=== PATIENT | male | born 1950 | race Caucasian/White ===

== ENCOUNTER → 2018-07-27 | Outpatient (CLI) | payer MEDICARE, OTHER ==
[~2018-07-27] MED LIST: AMLO5TAB7 PO; ATOR20TA66 PO; CRAN200C PO; HYDR-3923 PO; IBUP-2055 PO; IBUP-30 PO; LISI40TA PO; METF750T2 PO; METO-333 PO; SIMV10TA3 PO
== END ==
PROVIDERS: ATTEND Internal Medicine
DX: R50.9 Fever, unspecified (principal); R09.89 Other specified symptoms and signs involving the circulatory and respiratory systems
CPT/HCPCS: 87804

== ENCOUNTER → 2018-09-06 | Emergency (ER) | payer MEDICARE, OTHER ==
[~2018-09-06] VITALS: Ht 185.4 cm; Wt 74.8 kg
--- OUTSIDE RECORDS SUMMARY | 2018-09-06 17:16 | XMS REPORT | Continuity of Care Document ---
Author Author [facility] Organization [facility] Address Unknown Phone Unavailable Allergies Active Description Code Type Severity Reaction Onset Reported/Identified Relationship to Patient Clinical Status Yes NO KNOWN DRUG ALLERGIES UNKNOWN NO KNOWN DRUG ALLERG Yes No Known Drug Allergies [id number] Drug Allergy Unknown N/A 10/06/2015 Medications Medication Packaging Start Date Stop Date Route Dosage Sig NORMAL SALINE 500CC IV BAG INJ 0.9 % (NS 500CC IV BAG) ml 05/22/2018 06/06/2018 CONTINUOUSEVERY 0 Hour D5 09/10 NS 1000CC IV BAG INJ ml 05/30/2018 CONTINUOUSEVERY 0 Hour METOPROLOL TAB 25 MG (LOPRESSOR) MG 05/23/2018 06/21/2018 BID&0800,2000 AMLODIPINE TAB 5 MG (NORVASC) MG 06/21/2018 Daily&0900 AMLODIPINE TAB 10 MG (NORVASC) MG 05/23/2018 05/29/2018 Daily&0900 ASPIRIN ENTERIC COATED TAB 81 MG (BABY ASPIRIN EC) MG 05/23/2018 05/29/2018 Daily&0900 INSULIN ASPART PEN INJ 100 UNITS/CC (NOVOLOG FLEXPEN) 05/23/2018 05/23/2018 ONCE&1257 INSULIN ASPART PEN INJ 100 UNITS/CC (NOVOLOG FLEXPEN) 05/23/2018 06/22/2018 ACHS&0630,1130,1630,2100 FAMOTIDINE TAB 20 MG (PEPCID) MG 05/30/2018 BID&0800,2000 AMLODIPINE TAB 10 MG (NORVASC) MG 05/24/2018 05/30/2018 Daily&0900 ENOXAPARIN SYRINGE INJ 40 MG (LOVENOX SYRINGE) MG 05/24/2018 06/02/2018 Daily&0900 FLUOXETINE CAP 20 MG (PROZAC) MG 05/30/2018 Daily&0900 SITAGLIPTIN TAB 100 MG (JANUVIA) MG 05/24/2018 05/30/2018 Daily&0900 TAMSULOSIN CAP 0.4 MG (FLOMAX) MG 05/25/2018 05/31/2018 QPM&1800 DONEPEZIL TAB 5 MG (ARICEPT) MG 06/01/2018 Daily&0900 D5 1/2 NS 1000CC IV BAG INJ ml 06/25/2018 CONTINUOUSEVERY 0 Hour CEFTRIAXONE PREMIX IV BAG IV 1 GM/50CC (ROCEPHIN PREMIX IV BAG) GM 05/27/2018 06/02/2018 Daily&0900 MILK OF HEIDI LIQ ml 05/28/2018 06/26/2018 PRN Daily Problems Date Dx Coded Attending Type Code Diagnosis Diagnosed By 10/06/2015 VASHTI ROBINS DO, Ot I10 ESSENTIAL (PRIMARY) HYPERTENSION 10/06/2015 VASHTI ROBINS DO Ot I67.9 CEREBROVASCULAR DISEASE, UNSPECIFIED 10/06/2015 VASHTI ROBINS DO Ot N28.9 DISORDER OF KIDNEY AND URETER, UNSPECIFI 10/06/2015 VASHTI ROBINS DO Ot R55 SYNCOPE AND COLLAPSE 10/06/2015 VASHTI ROBINS DO, Ot R73.9 HYPERGLYCEMIA, UNSPECIFIED 10/06/2015 VASHTI ROBINS DO Ot Z53.29 PROC/TRTMT NOT CRD OUT BEC PT DECISION F 02/11/2016 ENRIQUE APPLE DO Ot E11.9 TYPE 2 DIABETES MELLITUS WITHOUT COMPLIC 02/11/2016 ENRIQUE APPLE DO Ot E78.5 HYPERLIPIDEMIA, UNSPECIFIED 02/11/2016 ENRIQUE APPLE DO Ot G93.41 METABOLIC ENCEPHALOPATHY 02/11/2016 ENRIQUE APPLE DO Ot I12.9 HYPERTENSIVE CHRONIC KIDNEY DISEASE W ST 02/11/2016 ENRIQUE APPLE DO Ot I61.4 NONTRAUMATIC INTRACEREBRAL HEMORRHAGE IN 02/11/2016 ENRIQUE APPLE DO Ot I67.4 HYPERTENSIVE ENCEPHALOPATHY 02/11/2016 ENRIQUE APPLE DO Ot N17.9 ACUTE KIDNEY FAILURE, UNSPECIFIED 02/11/2016 ENRIQUE APPLE DO Ot N18.9 CHRONIC KIDNEY DISEASE, UNSPECIFIED 04/27/2016 DAT MARQUEZ, ALISHA Patel Ot E78.2 MIXED HYPERLIPIDEMIA 04/27/2016 ALISHA DAUGHERTY MD Ot I10 ESSENTIAL (PRIMARY) HYPERTENSION 04/27/2016 ALISHA DAUGHERTY MD Ot I63.9 CEREBRAL INFARCTION, UNSPECIFIED 04/27/2016 DAT MARQUEZ, ALISHA Patel Ot R94.4 ABNORMAL RESULTS OF KIDNEY FUNCTION STUD 04/27/2016 ALISHA DAUGHERTY MD Ot E78.2 MIXED HYPERLIPIDEMIA 04/27/2016 ALISHA DAUGHERTY MD Ot I10 ESSENTIAL (PRIMARY) HYPERTENSION 04/27/2016 ALISHA DAUGHERTY MD Ot I63.9 CEREBRAL INFARCTION, UNSPECIFIED 04/27/2016 ALISHA DAUGHERTY MD Ot R94.4 ABNORMAL RESULTS OF KIDNEY FUNCTION STUD 05/18/2016 ALISHA DAUGHERTY MD Ot E78.2 MIXED HYPERLIPIDEMIA 05/18/2016 ALISHA DAUGHERTY MD Ot I10 ESSENTIAL (PRIMARY) HYPERTENSION 05/18/2016 ALISHA DAUGHERTY MD Ot I63.9 CEREBRAL INFARCTION, UNSPECIFIED 05/18/2016 ALISHA DAUGHERTY MD Ot R94.4 ABNORMAL RESULTS OF KIDNEY FUNCTION STUD 08/23/2017 Brokob, Sugey W 250.00 DIABETES MELLITUS WITHOUT MENTION OF COMPLICATION, TYPE II OR UNSPECIFIED TYPE, NOT STATED UNCONTROLLED 08/23/2017 Brokob, Sugey W 401.9 UNSPECIFIED ESSENTIAL HYPERTENSION 08/23/2017 Brokob, Sugey W 585.9 CHRONIC KIDNEY DISEASE, UNSPECIFIED 08/23/2017 Brokob, Sugey W E11.9 TYPE 2 DIABETES MELLITUS WITHOUT COMPLICATIONS 08/23/2017 Brokob, Sugey W I10 ESSENTIAL (PRIMARY) HYPERTENSION 08/23/2017 Brokob, Sugey W N18.9 CHRONIC KIDNEY DISEASE, UNSPECIFIED 08/23/2017 Brokob, Sugey W 250.00 DIABETES MELLITUS WITHOUT MENTION OF COMPLICATION, TYPE II OR UNSPECIFIED TYPE, NOT STATED UNCONTROLLED 08/23/2017 Brokob, Sugey W 401.9 UNSPECIFIED ESSENTIAL HYPERTENSION 08/23/2017 Brokob, Sugey W 585.9 CHRONIC KIDNEY DISEASE, UNSPECIFIED 08/23/2017 Brokob, Sugey W E11.9 TYPE 2 DIABETES MELLITUS WITHOUT COMPLICATIONS 08/23/2017 Brokob, Sugey W I10 ESSENTIAL (PRIMARY) HYPERTENSION 08/23/2017 Brokob, Sugey W N18.9 CHRONIC KIDNEY DISEASE, UNSPECIFIED 11/01/2017 Jennifer Sullivan W 250.00 DIABETES MELLITUS WITHOUT MENTION OF COMPLICATION, TYPE II OR UNSPECIFIED TYPE, NOT STATED UNCONTROLLED 11/01/2017 Laurie, Jennifer W 401.0 MALIGNANT ESSENTIAL HYPERTENSION 11/01/2017 Laurie, Jennifer W 401.9 11/01/2017 Laurie, Jennifer W 585.3 CHRONIC KIDNEY DISEASE, STAGE III (MODERATE) 11/01/2017 Laurei, Jennifer W 782.3 EDEMA 11/01/2017 Laurie, Jennifer W E11.9 TYPE 2 DIABETES MELLITUS WITHOUT COMPLICATIONS 11/01/2017 Laurie, Jennifer W I10 ESSENTIAL (PRIMARY) HYPERTENSION 11/01/2017 Laurie, Jennifer W N18.3 CHRONIC KIDNEY DISEASE, STAGE 3 (MODERATE) 11/01/2017 Laurie, Jennifer W R60.0 LOCALIZED EDEMA 11/01/2017 Laurie, Jennifer W 250.00 DIABETES MELLITUS WITHOUT MENTION OF COMPLICATION, TYPE II OR UNSPECIFIED TYPE, NOT STATED UNCONTROLLED 11/01/2017 Laurie, Jennifer W 401.0 MALIGNANT ESSENTIAL HYPERTENSION 11/01/2017 Laurie, Jennifer W 401.9 11/01/2017 Laurie, Jennifer W 585.3 CHRONIC KIDNEY DISEASE, STAGE III (MODERATE) 11/01/2017 Laurie, Jennifer W 585.9 11/01/2017 Laurie, Jennifer W 782.3 11/01/2017 Laurie, Jennifer W E11.9 TYPE 2 DIABETES MELLITUS WITHOUT COMPLICATIONS 11/01/2017 Laurie, Jennifer W I10 ESSENTIAL (PRIMARY) HYPERTENSION 11/01/2017 Laurie, Jennifer W N18.3 CHRONIC KIDNEY DISEASE, STAGE 3 (MODERATE) 11/01/2017 Laurie, Jennifer W N18.9 CHRONIC KIDNEY DISEASE, UNSPECIFIED 11/01/2017 Laurie, Jennifer W R60.0 LOCALIZED EDEMA 11/01/2017 Laurie, Jennifer W 250.00 DIABETES MELLITUS WITHOUT MENTION OF COMPLICATION, TYPE II OR UNSPECIFIED TYPE, NOT STATED UNCONTROLLED 11/01/2017 Laurie, Jennifer W 401.0 MALIGNANT ESSENTIAL HYPERTENSION 11/01/2017 Laurie, Jennifer W 401.9 11/01/2017 Laurie, Jennifer W 585.3 CHRONIC KIDNEY DISEASE, STAGE III (MODERATE) 11/01/2017 Alurie, Jennifer W 585.9 11/01/2017 Laurie, Jennifer W 782.3 11/01/2017 Laurie, Jennifer W E11.9 TYPE 2 DIABETES MELLITUS WITHOUT COMPLICATIONS 11/01/2017 Laurie, Jennifer W I10 ESSENTIAL (PRIMARY) HYPERTENSION 11/01/2017 Laurie, Jennifer W N18.3 CHRONIC KIDNEY DISEASE, STAGE 3 (MODERATE) 11/01/2017 Laurie, Jennifer W N18.9 CHRONIC KIDNEY DISEASE, UNSPECIFIED 11/01/2017 Laurie, Jennifer W R60.0 LOCALIZED EDEMA 11/04/2017 Laurie, Jennifer W 585.9 CHRONIC KIDNEY DISEASE, UNSPECIFIED 11/04/2017 Laurie, Jennifer W N18.9 CHRONIC KIDNEY DISEASE, UNSPECIFIED 11/04/2017 Laurie, Jennifer W 585.9 CHRONIC KIDNEY DISEASE, UNSPECIFIED 11/04/2017 Laurie, Jennifer W N18.9 CHRONIC KIDNEY DISEASE, UNSPECIFIED 04/18/2018 Laurie, Jennifer W 272.4 OTHER AND UNSPECIFIED HYPERLIPIDEMIA 04/18/2018 Laurie, Jennifer W 285.9 ANEMIA, UNSPECIFIED 04/18/2018 Laurie, Jennifer W 585.9 CHRONIC KIDNEY DISEASE, UNSPECIFIED 04/18/2018 Laurie, Jennifer W 782.3 EDEMA 04/18/2018 Laurie, Jennifer W D64.9 ANEMIA, UNSPECIFIED 04/18/2018 Laurie, Jennifer W E78.5 HYPERLIPIDEMIA, UNSPECIFIED 04/18/2018 Laurie, Jennifer W N18.9 CHRONIC KIDNEY DISEASE, UNSPECIFIED 04/18/2018 Laurie, Jennifer W R60.0 LOCALIZED EDEMA 04/18/2018 Laurie, Jennifer W 272.4 OTHER AND UNSPECIFIED HYPERLIPIDEMIA 04/18/2018 Laurie, Jennifer W 285.9 ANEMIA, UNSPECIFIED 04/18/2018 Laurie, Jennifer W 585.9 CHRONIC KIDNEY DISEASE, UNSPECIFIED 04/18/2018 Laurie, Jennifer W 782.3 EDEMA 04/18/2018 Laurie, Jennifer W D64.9 ANEMIA, UNSPECIFIED 04/18/2018 Laurie, Jennifer W E78.5 HYPERLIPIDEMIA, UNSPECIFIED 04/18/2018 Laurie, Jennifer W N18.9 CHRONIC KIDNEY DISEASE, UNSPECIFIED 04/18/2018 Laurie, Jennifer W R60.0 LOCALIZED EDEMA 04/18/2018 Laurie, Jennifer W 250.00 DIABETES MELLITUS WITHOUT MENTION OF COMPLICATION, TYPE II OR UNSPECIFIED TYPE, NOT STATED UNCONTROLLED 04/18/2018 Laurie, Jennifer W 272.4 OTHER AND UNSPECIFIED HYPERLIPIDEMIA 04/18/2018 Laurie, Jennifer W 285.9 ANEMIA, UNSPECIFIED 04/18/2018 Laurie, Jennifer W 401.0 04/18/2018 Laurie, Jennifer W 401.9 04/18/2018 Laurie, Jennifer W 403.00 04/18/2018 Laurie, Jennifer W 585.3 04/18/2018 Laurie, Jennifer W 585.9 CHRONIC KIDNEY DISEASE, UNSPECIFIED 04/18/2018 Laurie, Jennifer W 782.3 EDEMA 04/18/2018 Laurie, Jennifer W D64.9 ANEMIA, UNSPECIFIED 04/18/2018 Laurie, Jennifer W E11.9 TYPE 2 DIABETES MELLITUS WITHOUT COMPLICATIONS 04/18/2018 Laurie, Jennifer W E78.5 HYPERLIPIDEMIA, UNSPECIFIED 04/18/2018 Laurie, Jennifer W I10 ESSENTIAL (PRIMARY) HYPERTENSION 04/18/2018 Laurie, Jennifer W I12.9 HYPERTENSIVE CHRONIC KIDNEY DISEASE WITH STAGE 1 THROUGH STAGE 4 CHRONIC KIDNEY DISEASE, OR UNSPECIFIED CHRONIC KIDNEY DISEASE 04/18/2018 Laurie, Jennifer W N18.3 CHRONIC KIDNEY DISEASE, STAGE 3 (MODERATE) 04/18/2018 Laurie, Jennifer W N18.9 CHRONIC KIDNEY DISEASE, UNSPECIFIED 04/18/2018 Laurie, Jennifer W R60.0 LOCALIZED EDEMA 04/18/2018 Laurie, Jennifer W R60.9 EDEMA, UNSPECIFIED 04/18/2018 Laurie, Jennifer W 250.00 04/18/2018 Laurie, Jennifer W 272.4 04/18/2018 Laurie, Jennifer W 285.9 04/18/2018 Laurie, Jennifer W 401.0 04/18/2018 Laurie, Jennifer W 401.9 04/18/2018 Laurie, Jennifer W 403.00 04/18/2018 Laurie, Jennifer W 585.3 04/18/2018 Laurie, Jennifer W 585.9 04/18/2018 Laurie, Jennifer W 709.9 04/18/2018 Laurie, Jennifer W 782.3 04/18/2018 Laurie, Jennifer W D64.9 ANEMIA, UNSPECIFIED 04/18/2018 Laurie, Jennifer W E11.9 TYPE 2 DIABETES MELLITUS WITHOUT COMPLICATIONS 04/18/2018 Laurie, Jennifer W E78.5 HYPERLIPIDEMIA, UNSPECIFIED 04/18/2018 Laurie, Jennifer W I10 ESSENTIAL (PRIMARY) HYPERTENSION 04/18/2018 Laurie, Jennifer W I12.9 HYPERTENSIVE CHRONIC KIDNEY DISEASE WITH STAGE 1 THROUGH STAGE 4 CHRONIC KIDNEY DISEASE, OR UNSPECIFIED CHRONIC KIDNEY DISEASE 04/18/2018 Laurie, Jennifer W L98.9 04/18/2018 Laurie, Jennifer W N18.3 CHRONIC KIDNEY DISEASE, STAGE 3 (MODERATE) 04/18/2018 Laurie, Jennifer W N18.9 CHRONIC KIDNEY DISEASE, UNSPECIFIED 04/18/2018 Laurie, Jennifer W R60.0 LOCALIZED EDEMA 04/18/2018 Laurie, Jennifer W R60.9 EDEMA, UNSPECIFIED 04/18/2018 Laurie, Jennifer W Z86.73 04/18/2018 Laurie, Jennifer W Z91.81 05/22/2018 Salinas, Cinthya-Micaela W 780.79 OTHER MALAISE AND FATIGUE 05/22/2018 [place], Cinthya-Micaela W R53.1 WEAKNESS 05/22/2018 [place], Cinthya-Micaela W 250.90 DIABETES MELLITUS WITH UNSPECIFIED COMPLICATION, TYPE II OR UNSPECIFIED TYPE, NOT STATED UNCONTROLLED 05/22/2018 [place], Cinthya-Micaela W 401.9 UNSPECIFIED ESSENTIAL HYPERTENSION 05/22/2018 [place], Cinthya-Micaela W 780.79 OTHER MALAISE AND FATIGUE 05/22/2018 [place], Cinthya-Micaela W E11.8 TYPE 2 DIABETES MELLITUS WITH UNSPECIFIED COMPLICATIONS 05/22/2018 [place], Cinthya-Micaela W I10 ESSENTIAL (PRIMARY) HYPERTENSION 05/22/2018 [place], Cinthya-Micaela W R53.1 WEAKNESS 05/23/2018 [place], Cinthya-Micaela W 250.90 DIABETES MELLITUS WITH UNSPECIFIED COMPLICATION, TYPE II OR UNSPECIFIED TYPE, NOT STATED UNCONTROLLED 05/23/2018 [place], Cinthya-Micaela W 401.9 UNSPECIFIED ESSENTIAL HYPERTENSION 05/23/2018 [place], Cinthya-Micaela W 584.9 ACUTE KIDNEY FAILURE, UNSPECIFIED 05/23/2018 [place], Cinthya-Micaela W 780.79 OTHER MALAISE AND FATIGUE 05/23/2018 [place], Cinthya-Micaela W E11.8 TYPE 2 DIABETES MELLITUS WITH UNSPECIFIED COMPLICATIONS 05/23/2018 [place], Cinthya-Micaela W I10 ESSENTIAL (PRIMARY) HYPERTENSION 05/23/2018 [place], Cinthya-Micaela W N17.9 ACUTE KIDNEY FAILURE, UNSPECIFIED 05/23/2018 [place], Cinthya-Micaela W R53.1 WEAKNESS 05/23/2018 [place], Cinthya-Micaela W 250.90 DIABETES MELLITUS WITH UNSPECIFIED COMPLICATION, TYPE II OR UNSPECIFIED TYPE, NOT STATED UNCONTROLLED 05/23/2018 [place], Cinthya-Micaela W 401.9 UNSPECIFIED ESSENTIAL HYPERTENSION 05/23/2018 [place], Cinthya-Micaela W 584.9 ACUTE KIDNEY FAILURE, UNSPECIFIED 05/23/2018 [place], Cinthya-Micaela W 780.79 OTHER MALAISE AND FATIGUE 05/23/2018 [place], Cinthya-Micaela W E11.8 TYPE 2 DIABETES MELLITUS WITH UNSPECIFIED COMPLICATIONS 05/23/2018 [place], Cinthya-Micaela W I10 ESSENTIAL (PRIMARY) HYPERTENSION 05/23/2018 [place], Cinthya-Micaela W N17.9 ACUTE KIDNEY FAILURE, UNSPECIFIED 05/23/2018 [place], Cinthya-Micaela W R53.1 WEAKNESS 05/23/2018 [place], Cinthya-Micaela W 250.90 DIABETES MELLITUS WITH UNSPECIFIED COMPLICATION, TYPE II OR UNSPECIFIED TYPE, NOT STATED UNCONTROLLED 05/23/2018 [place], Cinthya-Micaela W 401.9 UNSPECIFIED ESSENTIAL HYPERTENSION 05/23/2018 [place], Cinthya-Micaela W 584.9 ACUTE KIDNEY FAILURE, UNSPECIFIED 05/23/2018 [place], Cinthya-Micaela W 585.3 CHRONIC KIDNEY DISEASE, STAGE III (MODERATE) 05/23/2018 [place], Cinthya-Micaela W 780.79 OTHER MALAISE AND FATIGUE 05/23/2018 [place], Cinthya-Micaela W E11.8 TYPE 2 DIABETES MELLITUS WITH UNSPECIFIED COMPLICATIONS 05/23/2018 [place], Cinthya-Micaela W I10 ESSENTIAL (PRIMARY) HYPERTENSION 05/23/2018 [place], Cinthya-Micaela W N17.9 ACUTE KIDNEY FAILURE, UNSPECIFIED 05/23/2018 [place], Cinthya-Micaela W N18.3 CHRONIC KIDNEY DISEASE, STAGE 3 (MODERATE) 05/23/2018 [place], Cinthya-Micaela W R53.1 WEAKNESS 05/24/2018 [place], Cinthya-Micaela W 250.90 DIABETES MELLITUS WITH UNSPECIFIED COMPLICATION, TYPE II OR UNSPECIFIED TYPE, NOT STATED UNCONTROLLED 05/24/2018 [place], Cinthya-Micaela W 401.9 UNSPECIFIED ESSENTIAL HYPERTENSION 05/24/2018 [place], Cinthya-Micaela W 584.9 ACUTE KIDNEY FAILURE, UNSPECIFIED 05/24/2018 [place], Cinthya-Micaela W 585.3 05/24/2018 [place], Cinthya-Micaela W 728.87 05/24/2018 [place], Cinthya-Micaela W 780.79 OTHER MALAISE AND FATIGUE 05/24/2018 [place], Cinthya-Micaela W E11.8 TYPE 2 DIABETES MELLITUS WITH UNSPECIFIED COMPLICATIONS 05/24/2018 [place], Cinthya-Micaela W I10 ESSENTIAL (PRIMARY) HYPERTENSION 05/24/2018 [place], Cinthya-Micaela W M62.81 MUSCLE WEAKNESS (GENERALIZED) 05/24/2018 Salnias, Cinthya-Micaela W N17.9 ACUTE KIDNEY FAILURE, UNSPECIFIED 05/24/2018 Salinas, Cinthya-Micaela W N18.3 CHRONIC KIDNEY DISEASE, STAGE 3 (MODERATE) 05/24/2018 [place], Cinthya-Micaela W R53.1 WEAKNESS 05/24/2018 [place], Cinthya-Micaela W 250.90 DIABETES MELLITUS WITH UNSPECIFIED COMPLICATION, TYPE II OR UNSPECIFIED TYPE, NOT STATED UNCONTROLLED 05/24/2018 [place], Cinthya-Micaela W 401.9 UNSPECIFIED ESSENTIAL HYPERTENSION 05/24/2018 [place], Cinthya-Micaela W 584.9 ACUTE KIDNEY FAILURE, UNSPECIFIED 05/24/2018 [place], Cinthya-Micaela W 585.3 05/24/2018 [place], Cinthya-Micaela W 728.87 05/24/2018 [place], Cinthya-Micaela W 780.79 OTHER MALAISE AND FATIGUE 05/24/2018 [place], Cinthya-Micaela W E11.8 TYPE 2 DIABETES MELLITUS WITH UNSPECIFIED COMPLICATIONS 05/24/2018 [place], Cinthya-Micaela W I10 ESSENTIAL (PRIMARY) HYPERTENSION 05/24/2018 [place], Cinthya-Micaela W M62.81 MUSCLE WEAKNESS (GENERALIZED) 05/24/2018 [place], Cinthya-Micaela W N17.9 ACUTE KIDNEY FAILURE, UNSPECIFIED 05/24/2018 [place], Cinthya-Micaela W N18.3 CHRONIC KIDNEY DISEASE, STAGE 3 (MODERATE) 05/24/2018 [place], Cinthya-Micaela W R53.1 WEAKNESS 05/24/2018 [place], Cinthya-Micaela W 250.90 DIABETES MELLITUS WITH UNSPECIFIED COMPLICATION, TYPE II OR UNSPECIFIED TYPE, NOT STATED UNCONTROLLED 05/24/2018 [place], Cinthya-Micaela W 401.9 UNSPECIFIED ESSENTIAL HYPERTENSION 05/24/2018 [place], Cinthya-Micaela W 584.9 05/24/2018 [place], Cinthya-Micaela W 585.3 05/24/2018 [place], Cinthya-Micaela W 728.87 05/24/2018 [place], Cinthya-Micaela W 780.79 OTHER MALAISE AND FATIGUE 05/24/2018 [place], Cinthya-Micaela W E11.8 TYPE 2 DIABETES MELLITUS WITH UNSPECIFIED COMPLICATIONS 05/24/2018 [place], Cinthya-Micaela W I10 ESSENTIAL (PRIMARY) HYPERTENSION 05/24/2018 [place], Cinthya-Micaela W M62.81 MUSCLE WEAKNESS (GENERALIZED) 05/24/2018 [place], Cinthya-Micaela W N17.9 ACUTE KIDNEY FAILURE, UNSPECIFIED 05/24/2018 [place], Cinthya-Micaela W N18.3 CHRONIC KIDNEY DISEASE, STAGE 3 (MODERATE) 05/24/2018 [place], Cinthya-Micaela W R53.1 WEAKNESS 05/24/2018 [place], Cinthya-Micaela W V60.4 05/24/2018 [place], Cinthya-Micaela W Z74.2 NEED FOR ASSISTANCE AT HOME AND NO OTHER HOUSEHOLD MEMBER ABLE TO RENDER CARE 05/24/2018 [place], Cinthya-Micaela W 250.90 DIABETES MELLITUS WITH UNSPECIFIED COMPLICATION, TYPE II OR UNSPECIFIED TYPE, NOT STATED UNCONTROLLED 05/24/2018 [place], Cinthya-Micaela W 300.4 05/24/2018 [place], Cinthya-Micaela W 401.9 05/24/2018 [place], Cinthya-Micaela W 584.9 05/24/2018 [place], Cinthya-Micaela W 585.3 05/24/2018 [place], Cinthya-Micaela W 728.87 05/24/2018 [place], Cinthya-Micaela W 780.79 OTHER MALAISE AND FATIGUE 05/24/2018 [place], Cinthya-Micaela W E11.8 TYPE 2 DIABETES MELLITUS WITH UNSPECIFIED COMPLICATIONS 05/24/2018 [place], Cinthya-Micaela W F34.1 DYSTHYMIC DISORDER 05/24/2018 [place], Cinthya-Micaela W I10 ESSENTIAL (PRIMARY) HYPERTENSION 05/24/2018 [place], Cinthya-Micaela W M62.81 MUSCLE WEAKNESS (GENERALIZED) 05/24/2018 [place], Cinthya-Micaela W N17.9 ACUTE KIDNEY FAILURE, UNSPECIFIED 05/24/2018 [place], Cinthya-Micaela W N18.3 CHRONIC KIDNEY DISEASE, STAGE 3 (MODERATE) 05/24/2018 [place], Cinthya-Micaela W R53.1 WEAKNESS 05/24/2018 [place], Cinthya-Micaela W V60.4 05/24/2018 [place], Cinthya-Micaela W Z74.2 NEED FOR ASSISTANCE AT HOME AND NO OTHER HOUSEHOLD MEMBER ABLE TO RENDER CARE 05/24/2018 [place], Cinthya-Micaela W 250.90 05/24/2018 [place], Cinthya-Micaela W 300.4 05/24/2018 [place], Cinthya-Micaela W 368.9 05/24/2018 [place], Cinthya-Micaela W 401.9 05/24/2018 [place], Cinthya-Micaela W 584.9 05/24/2018 [place], Cinthya-Micaela W 585.3 05/24/2018 [place], Cinthya-Micaela W 728.87 05/24/2018 [place], Cinthya-Micaela W 780.79 OTHER MALAISE AND FATIGUE 05/24/2018 [place], Cinthya-Micaela W E11.8 TYPE 2 DIABETES MELLITUS WITH UNSPECIFIED COMPLICATIONS 05/24/2018 [place], Cinthya-Micaela W F34.1 DYSTHYMIC DISORDER 05/24/2018 [place], Cinthya-Micaela W H53.9 UNSPECIFIED VISUAL DISTURBANCE 05/24/2018 [place], Cinthya-Micaela W I10 ESSENTIAL (PRIMARY) HYPERTENSION 05/24/2018 [place], Cinthya-Micaela W M62.81 MUSCLE WEAKNESS (GENERALIZED) 05/24/2018 [place], Cinthya-Micaela W N17.9 ACUTE KIDNEY FAILURE, UNSPECIFIED 05/24/2018 [place], Cinthya-Micaela W N18.3 CHRONIC KIDNEY DISEASE, STAGE 3 (MODERATE) 05/24/2018 [place], Cinthya-Micaela W R53.1 WEAKNESS 05/24/2018 [place], Cinthya-Micaela W V60.4 05/24/2018 [place], Cinthya-Micaela W Z74.2 NEED FOR ASSISTANCE AT HOME AND NO OTHER HOUSEHOLD MEMBER ABLE TO RENDER CARE 05/24/2018 [place], Cinthya-Micaela W 250.90 05/24/2018 [place], Cinthya-Micaela W 300.4 05/24/2018 [place], Cinthya-Micaela W 368.9 05/24/2018 [place], Cinthya-Micaela W 401.9 05/24/2018 [place], Cintyha-Micaela W 434.91 05/24/2018 [place], Cinthya-Micaela W 584.9 05/24/2018 [place], Cinthya-Micaela W 585.3 05/24/2018 [place], Cinthya-Micaela W 728.87 05/24/2018 [place], Cinthya-Micaela W 780.79 05/24/2018 [place], Cinthya-Micaela W E11.8 TYPE 2 DIABETES MELLITUS WITH UNSPECIFIED COMPLICATIONS 05/24/2018 [place], Cinthya-Micaela W F34.1 DYSTHYMIC DISORDER 05/24/2018 [place], Cinthya-Micaela W H53.9 UNSPECIFIED VISUAL DISTURBANCE 05/24/2018 [place], Cinthya-Micaela W I10 ESSENTIAL (PRIMARY) HYPERTENSION 05/24/2018 [place], Cinthya-Micaela W I63.9 CEREBRAL INFARCTION, UNSPECIFIED 05/24/2018 [place], Cinthya-Micaela W M62.81 MUSCLE WEAKNESS (GENERALIZED) 05/24/2018 [place], Cinthya-Micaela W N17.9 ACUTE KIDNEY FAILURE, UNSPECIFIED 05/24/2018 [place], Cinthya-Micaela W N18.3 CHRONIC KIDNEY DISEASE, STAGE 3 (MODERATE) 05/24/2018 [place], Cinthya-Micaela W R53.1 WEAKNESS 05/24/2018 [place], Cinthya-Micaela W V60.4 05/24/2018 [place], Cinthya-Micaela W Z74.2 NEED FOR ASSISTANCE AT HOME AND NO OTHER HOUSEHOLD MEMBER ABLE TO RENDER CARE 05/25/2018 [place], Cinthya-Micaela W 250.90 05/25/2018 [place], Cinthya-Micaela W 300.4 05/25/2018 [place], Cinthya-Micaela W 368.9 05/25/2018 [place], Cinthya-Micaela W 401.9 05/25/2018 [place], Cinthya-Micaela W 434.91 05/25/2018 [place], Cinthya-Micaela W 584.9 05/25/2018 [place], Cinthya-Micaela W 585.3 05/25/2018 [place], Cinthya-Micaela W 728.87 05/25/2018 [place], Cinthya-Micaela W 780.79 05/25/2018 [place], Cinthya-Micaela W E11.8 TYPE 2 DIABETES MELLITUS WITH UNSPECIFIED COMPLICATIONS 05/25/2018 Salinas, Cinthya-Micaela W F34.1 DYSTHYMIC DISORDER 05/25/2018 Salinas, Cinthya-Micaela W H53.9 UNSPECIFIED VISUAL DISTURBANCE 05/25/2018 Salinas, Cinthya-Micaela W I10 ESSENTIAL (PRIMARY) HYPERTENSION 05/25/2018 Salinas, Cinthya-Micaela W I63.9 CEREBRAL INFARCTION, UNSPECIFIED 05/25/2018 Salinas, Cinthya-Micaela W M62.81 MUSCLE WEAKNESS (GENERALIZED) 05/25/2018 Salinas, Cinthya-Micaela W N17.9 ACUTE KIDNEY FAILURE, UNSPECIFIED 05/25/2018 Salinas, Cinthya-Micaela W N18.3 CHRONIC KIDNEY DISEASE, STAGE 3 (MODERATE) 05/25/2018 Salinas, Cinthya-Micaela W R53.1 WEAKNESS 05/25/2018 Salinas, Cinthya-Micaela W V60.4 05/25/2018 Salinas, Cinthya-Micaela W Z74.2 NEED FOR ASSISTANCE AT HOME AND NO OTHER HOUSEHOLD MEMBER ABLE TO RENDER CARE 05/26/2018 Salinas, Cinthya-Micaela W 250.90 05/26/2018 Salinas, Cinthya-Micaela W 300.4 05/26/2018 Salinas, Cinthya-Micaela W 368.9 05/26/2018 Sal[place], Cinthya-Micaela W 401.9 05/26/2018 Salinas, Cinthya-Micaela W 434.91 05/26/2018 Salinas, Cinthya-Micaela W 584.9 05/26/2018 Sal[place], Cinthya-Micaela W 585.3 05/26/2018 Sal[place], Cinthya-Micaela W 728.87 05/26/2018 Sal[place], Cinthya-Micaela W 780.79 05/26/2018 Sal[place], Cinthya-Micaela W E11.8 TYPE 2 DIABETES MELLITUS WITH UNSPECIFIED COMPLICATIONS 05/26/2018 Salinas, Cinthya-Micaela W F34.1 DYSTHYMIC DISORDER 05/26/2018 Sal[place], Cinthya-Micaela W H53.9 UNSPECIFIED VISUAL DISTURBANCE 05/26/2018 Sal[place], Cinthya-Micaela W I10 ESSENTIAL (PRIMARY) HYPERTENSION 05/26/2018 [place], Cinthya-Micaela W I63.9 CEREBRAL INFARCTION, UNSPECIFIED 05/26/2018 Sal[place], Cinthya-Micaela W M62.81 MUSCLE WEAKNESS (GENERALIZED) 05/26/2018 Sal[place], Cinthya-Micaela W N17.9 ACUTE KIDNEY FAILURE, UNSPECIFIED 05/26/2018 Sal[place], Cinthya-Micaela W N18.3 CHRONIC KIDNEY DISEASE, STAGE 3 (MODERATE) 05/26/2018 Sal[place], Cinthya-Micaela W R53.1 WEAKNESS 05/26/2018 Sal[place], Cinthya-Micaela W V60.4 05/26/2018 Sal[place], Cinthya-Micaela W Z74.2 NEED FOR ASSISTANCE AT HOME AND NO OTHER HOUSEHOLD MEMBER ABLE TO RENDER CARE 05/26/2018 Salinas, Cinthya-Micaela W 250.90 05/26/2018 Sal[place], Cinthya-Micaela W 300.4 05/26/2018 Sal[place], Cinthya-Micaela W 368.9 05/26/2018 Sal[place], Cinthya-Micaela W 401.9 05/26/2018 Sal[place], Cinthya-Micaela W 434.91 05/26/2018 Sal[place], Cinthya-Micaela W 584.9 05/26/2018 Sal[place], Cinthya-Micaela W 585.3 05/26/2018 Sal[place], Cinthya-Micaela W 585.4 05/26/2018 Sal[place], Cinthya-Micaela W 728.87 05/26/2018 Sal[place], Cinthya-Micaela W 780.79 05/26/2018 Sal[place], Cinthya-Micaela W E11.8 TYPE 2 DIABETES MELLITUS WITH UNSPECIFIED COMPLICATIONS 05/26/2018 Sal[place], Cinthya-Micaela W F34.1 DYSTHYMIC DISORDER 05/26/2018 Sal[place], Cinthya-Micaela W H53.9 UNSPECIFIED VISUAL DISTURBANCE 05/26/2018 Sal[place], Cinthya-Micaela W I10 ESSENTIAL (PRIMARY) HYPERTENSION 05/26/2018 Sal[place], Cinthya-Micaela W I63.9 CEREBRAL INFARCTION, UNSPECIFIED 05/26/2018 Sal[place], Cinthya-Micaela W M62.81 MUSCLE WEAKNESS (GENERALIZED) 05/26/2018 Sal[place], Cinthya-Micaela W N17.9 ACUTE KIDNEY FAILURE, UNSPECIFIED 05/26/2018 Salinas, Cinthya-Micaela W N18.3 CHRONIC KIDNEY DISEASE, STAGE 3 (MODERATE) 05/26/2018 Salinas, Cinthya-Micaela W N18.4 05/26/2018 Sal[place], Cinthya-Micaela W R53.1 WEAKNESS 05/26/2018 Salinas, Cinthya-Micaela W V60.4 05/26/2018 Sal[place], Cinthya-Micaela W Z74.2 NEED FOR ASSISTANCE AT HOME AND NO OTHER HOUSEHOLD MEMBER ABLE TO RENDER CARE 05/26/2018 Sal[place], Cinthya-Micaela W 250.90 05/26/2018 Salinas, Cinthya-Micaela W 300.4 05/26/2018 Sal[place], Cinthya-Micaela W 368.9 05/26/2018 Sal[place], Cinthya-Micaela W 401.9 05/26/2018 Sal[place], Cinthya-Micaela W 434.91 05/26/2018 Sal[place], Cinthya-Micaela W 584.9 05/26/2018 Salinas, Cinthya-Micaela W 585.3 05/26/2018 Salinas, Cinthya-Micaela W 585.4 05/26/2018 Salinas, Cinthya-Micaela W 728.87 05/26/2018 Salinas, Cinthya-Micaela W 780.79 05/26/2018 Salinas, Cinthya-Micaela W E11.8 TYPE 2 DIABETES MELLITUS WITH UNSPECIFIED COMPLICATIONS 05/26/2018 Salinas, Cinthya-Micaela W F34.1 DYSTHYMIC DISORDER 05/26/2018 Salinas, Cinthya-Micaela W H53.9 UNSPECIFIED VISUAL DISTURBANCE 05/26/2018 Salinas, Cinthya-Micaela W I10 ESSENTIAL (PRIMARY) HYPERTENSION 05/26/2018 Salinas, Cinthya-Micaela W I63.9 CEREBRAL INFARCTION, UNSPECIFIED 05/26/2018 Salinas, Cinthya-Micalea W M62.81 MUSCLE WEAKNESS (GENERALIZED) 05/26/2018 Salinas, Cinthya-Micaela W N17.9 ACUTE KIDNEY FAILURE, UNSPECIFIED 05/26/2018 Salinas, Cinthya-Micaela W N18.3 CHRONIC KIDNEY DISEASE, STAGE 3 (MODERATE) 05/26/2018 Salinas, Cinthya-Micaela W N18.4 05/26/2018 Salinas, Cinthya-Micaela W R53.1 WEAKNESS 05/26/2018 Salinas, Cinthya-Micaela W V60.4 05/26/2018 Salinas, Cinthya-Micaela W Z74.2 NEED FOR ASSISTANCE AT HOME AND NO OTHER HOUSEHOLD MEMBER ABLE TO RENDER CARE 05/28/2018 Salinas, Cinthya-Micaela W 250.90 05/28/2018 Salinas, Cinthya-Micaela W 294.20 05/28/2018 Salinas, Cinthya-Micaela W 300.4 05/28/2018 Salinas, Cinthya-Micaela W 368.9 05/28/2018 Salinas, Cinthya-Micaela W 401.9 05/28/2018 Salinas, Cinthya-Micaela W 434.91 05/28/2018 Salinas, Cinthya-Micaela W 584.9 05/28/2018 Salinas, Cinthya-Micaela W 585.3 05/28/2018 Salinas, Cinthya-Micaela W 585.4 05/28/2018 Salinas, Cinthya-Micaela W 728.87 05/28/2018 Salinas, Cinthya-Micaela W 780.79 05/28/2018 Salinas, Cinthya-Micaela W E11.8 TYPE 2 DIABETES MELLITUS WITH UNSPECIFIED COMPLICATIONS 05/28/2018 Salinas, Cinthya-Micaela W F03.90 05/28/2018 Salinas, Cinthya-Micaela W F34.1 DYSTHYMIC DISORDER 05/28/2018 Slainas, Cinthya-Micaela W H53.9 UNSPECIFIED VISUAL DISTURBANCE 05/28/2018 Salinas, Cinthya-Micaela W I10 ESSENTIAL (PRIMARY) HYPERTENSION 05/28/2018 Salinas, Cinthya-Micaela W I63.9 CEREBRAL INFARCTION, UNSPECIFIED 05/28/2018 Salinas, Cinthya-Micaela W M62.81 MUSCLE WEAKNESS (GENERALIZED) 05/28/2018 Salinas, Cinthya-Micaela W N17.9 ACUTE KIDNEY FAILURE, UNSPECIFIED 05/28/2018 Salinas, Cinthya-Micaela W N18.3 CHRONIC KIDNEY DISEASE, STAGE 3 (MODERATE) 05/28/2018 Salinas, Cinthya-Micaela W N18.4 05/28/2018 Salinas, Cinthya-Micaela W R53.1 WEAKNESS 05/28/2018 Salinas, Cinthya-Micaela W V60.4 05/28/2018 Salinas, Cinthya-Micaela W Z74.2 NEED FOR ASSISTANCE AT HOME AND NO OTHER HOUSEHOLD MEMBER ABLE TO RENDER CARE 05/28/2018 Salinas, Cinthya-Micaela W 250.90 05/28/2018 Salinas, Cinthya-Micaela W 294.20 05/28/2018 Salinas, Cinthya-Micaela W 300.4 05/28/2018 Salinas, Cinthya-Micaela W 368.9 05/28/2018 Salinas, Cinthya-Micaela W 401.9 05/28/2018 Salinas, Cinthya-Micaela W 434.91 05/28/2018 Salinas, Cinthya-Micaela W 584.9 05/28/2018 Salinas, Cinthya-Micaela W 585.3 05/28/2018 Salinas, Cinthya-Micaela W 585.4 05/28/2018 Salinas, Cinthya-Micaela W 728.87 05/28/2018 Salinas, Cinthya-Micaela W 780.79 05/28/2018 Salinas, Cinthya-Micaela W E11.8 TYPE 2 DIABETES MELLITUS WITH UNSPECIFIED COMPLICATIONS 05/28/2018 Salinas, Cinthya-Micaela W F03.90 05/28/2018 Salinas, Cinthya-Micaela W F34.1 DYSTHYMIC DISORDER 05/28/2018 Salinas, Cinthya-Micaela W H53.9 UNSPECIFIED VISUAL DISTURBANCE 05/28/2018 Salinas, Cinthya-Micaela W I10 ESSENTIAL (PRIMARY) HYPERTENSION 05/28/2018 Salinas, Cinthya-Micaela W I63.9 CEREBRAL INFARCTION, UNSPECIFIED 05/28/2018 Salinas, Cinthya-Micaela W M62.81 MUSCLE WEAKNESS (GENERALIZED) 05/28/2018 Salinas, Cinthya-Micaela W N17.9 ACUTE KIDNEY FAILURE, UNSPECIFIED 05/28/2018 Salinas, Cinthya-Micaela W N18.3 CHRONIC KIDNEY DISEASE, STAGE 3 (MODERATE) 05/28/2018 Salinas, Cinthya-Micaela W N18.4 05/28/2018 Salinas, Cinthya-Micaela W R53.1 WEAKNESS 05/28/2018 Salinas, Cinthya-Micaela W V60.4 05/28/2018 Salinas, Cinthya-Micaela W Z74.2 NEED FOR ASSISTANCE AT HOME AND NO OTHER HOUSEHOLD MEMBER ABLE TO RENDER CARE 05/28/2018 Salinas, Cinthya-Micaela W 250.90 05/28/2018 Salinas, Cinthya-Micaela W 294.20 05/28/2018 Salinas, Cinthya-Micaela W 300.4 05/28/2018 Salinas, Cinthya-Micaela W 368.9 05/28/2018 Salinas, Cinthya-Micaela W 401.9 05/28/2018 Salinas, Cinthya-Micaela W 434.91 05/28/2018 Salinas, Cinthya-Micaela A 584.9 05/28/2018 Salinas, Cinthya-Micaela W 585.3 05/28/2018 Salinas, Cinthya-Micaela W 585.4 05/28/2018 Salinas, Cinthya-Micaela W 728.87 05/28/2018 Salinas, Cinthya-Micaela W 780.79 05/28/2018 Salinas, Cinthya-Micaela W E11.65 05/28/2018 Salinas, Cinthya-Micaela W E11.8 TYPE 2 DIABETES MELLITUS WITH UNSPECIFIED COMPLICATIONS 05/28/2018 Salinas, Cinthya-Micaela W E86.0 05/28/2018 Salinas, Cinthya-Micaela W F03.90 05/28/2018 Salinas, Cinthya-Micaela W F34.1 DYSTHYMIC DISORDER 05/28/2018 Salinas, Cinthya-Micaela W H53.9 UNSPECIFIED VISUAL DISTURBANCE 05/28/2018 Salinas, Cinthya-Micaela W I10 ESSENTIAL (PRIMARY) HYPERTENSION 05/28/2018 Salinas, Cinthya-Micaela W I63.9 CEREBRAL INFARCTION, UNSPECIFIED 05/28/2018 Salinas, Cinthya-Micaela W M62.81 MUSCLE WEAKNESS (GENERALIZED) 05/28/2018 Salinas, Cinthya-Micaela A N17.9 ACUTE KIDNEY FAILURE, UNSPECIFIED 05/28/2018 Salinas, Cinthya-Micaela W N18.3 CHRONIC KIDNEY DISEASE, STAGE 3 (MODERATE) 05/28/2018 Salinas, Cinthya-Micaela W N18.4 05/28/2018 Salinas, Cinthya-Micaela W N39.0 05/28/2018 Salinas, Cinthya-Micaela W R41.82 05/28/2018 Salinas, Cinthya-Micaela W R53.1 WEAKNESS 05/28/2018 Salinas, Cinthya-Micaela W V60.4 05/28/2018 Sal[place], Cinthya-Micaela W Z74.2 NEED FOR ASSISTANCE AT HOME AND NO OTHER HOUSEHOLD MEMBER ABLE TO RENDER CARE 05/28/2018 Sal[place], Cinthya-Micaela W Z86.73 07/29/2018 JOHN MARQUEZ, ERFA Valerio Ot R09.89 OTH SYMPTOMS AND SIGNS INVOLVING THE CIR 07/29/2018 JOHN MARQUEZ, EFRA Valerio Ot R50.9 FEVER, UNSPECIFIED 08/11/2018 ALISHA DAUGHERTY MD Ot E78.2 MIXED HYPERLIPIDEMIA 08/11/2018 ALISHA DAUGHERTY MD Ot I10 ESSENTIAL (PRIMARY) HYPERTENSION 08/11/2018 ALISHA DAUGHERTY MD Ot I63.9 CEREBRAL INFARCTION, UNSPECIFIED 08/11/2018 ALISHA DAUGHERTY MD Ot R94.4 ABNORMAL RESULTS OF KIDNEY FUNCTION STUD 08/11/2018 EFRA LOPEZ MD Ot R09.89 OTH SYMPTOMS AND SIGNS INVOLVING THE CIR 08/11/2018 EFRA LOPEZ MD, Ot R50.9 FEVER, UNSPECIFIED 08/12/2018 ALISHA DAUGHERTY MD Ot E78.2 MIXED HYPERLIPIDEMIA 08/12/2018 ALISHA DAUGHERTY MD Ot I10 ESSENTIAL (PRIMARY) HYPERTENSION 08/12/2018 ALISHA DAUGHERTY MD Ot I63.9 CEREBRAL INFARCTION, UNSPECIFIED 08/12/2018 ALISHA DAUGHERTY MD Ot R94.4 ABNORMAL RESULTS OF KIDNEY FUNCTION STUD 08/12/2018 EFRA LOPEZ MD, Ot R09.89 OTH SYMPTOMS AND SIGNS INVOLVING THE CIR 08/12/2018 EFRA LOPEZ MD, Ot R50.9 FEVER, UNSPECIFIED 08/12/2018 EFRA LOPEZ MD Ot R09.89 OTH SYMPTOMS AND SIGNS INVOLVING THE CIR 08/12/2018 EFRA LOPEZ MD, Ot R50.9 FEVER, UNSPECIFIED Procedures There is no data. Results Test Result Range Thyroid Stimulating Hormone - 09/07/16 13:55 TSH 3.32 mIU/mL 0.32-5.00 BMP - 11/26/16 14:40 Anion Gap 15 6-14 BUN 41 mg/dL 5-25 Calcium 9.0 mg/dL 8.3-10.4 Chloride 103 mmol/L 95-114 CO2 27 mEq/L 22-33 Creat 2.05 mg/dL 0.50-1.50 eGFR 32 mL/min/1.73m2 >59 Glucose 139 mg/dL 70-110 Osmo 301 280-295 Potassium 4.7 mmol/L 3.5-5.3 Sodium 140 mmol/L 134-148 BNP - 02/27/17 14:00 BNP 126.40 pg/ml 0.00-100.00 Other Culture - 05/30/17 14:40 PRELIM CULTURE RESULTS Abundant Gram Positive - Coag Positive Staph - MICHEL / ID to Follow MEDIA PLATED Setup at 15:04 on 05/30/2017 Sensi - 05/30/17 14:40 FINAL CULTURE RESULTS Staphylococcus aureus (Isolate 1) Ampicillin/Sulbactam <=8/4 Ampicillin <=2 Amoxicillin/K Clavulanate <=4/2 Ceftriaxone <=8 Clindamycin <=0.5 Cefoxitin Screen <=4 Ciprofloxacin <=1 Daptomycin <=0.5 Erythromycin <=0.5 Nitrofurantoin <=32 Gentamicin <=4 Gentamicin Synergy Screen N/R Inducible Clindamycin N/R Levofloxacin <=1 Linezolid <=1 Moxifloxacin <=0.5 Oxacillin <=0.25 Penicillin <=0.03 Rifampin <=1 Streptomycin Synergy N/R Synercid <=0.5 Trimethoprim/ Sulfamethoxazole <=0.5/9.5 Tetracycline <=4 Vancomycin 1 BNP - 08/23/17 09:00 BNP 137.40 pg/ml 0.00-100.00 Microalbumin - 08/23/17 14:00 Microalb 217.0 mg/L 0.0-20.0 Lipid Panel - 11/01/17 07:55 C/HDL 2.1 3.7-6.7 Cholesterol 118 mg/dL 100-240 HDL 56 mg/dL 30-85 LDL-Calculated 50 mg/dL 0-100 Trig 59 mg/dL 35-160 VLDL 12 mg/dL 0-42 Iron - 11/01/17 11:52 Iron 71 ug/dL 70-200 Hemoglobin A1C - 04/18/18 07:50 % A1C 6.70 % 5.40-6.60 AvGlu 161 mg/dL 70-110 BNP - 05/22/18 21:52 BNP 48.90 pg/ml 0.00-100.00 EKG - 05/22/18 21:52 EKG Complete Cardiac Panel - 05/23/18 00:50 CK 71 U/L 26-174 CK-MB 1.2 ng/ml 0.0-9.2 Myoglobin 138.4 ng/ml 1.6-154.9 Troponin <0.020 ng/mL 0.0-0.4 Cardiac Panel - 05/23/18 05:04 CK 69 U/L 26-174 CK-MB 0.9 ng/ml 0.0-9.2 Myoglobin 114.9 ng/ml 1.6-154.9 Troponin <0.020 ng/mL 0.0-0.4 Urinalysis - 05/23/18 11:54 Icotest N/A Negative Urine Casts Hyaline Urine Volume Urine Volume Sufficient (10mL) Urine Yeast No Yeast present Urine-Appearance Clear Clear Urine-Bacteria Negative Urine-Bilirubin Negative Negative Urine-Blood Negative Negative Urine-Color Yellow Colorless-Lt. Yellow Urine-Epithelial Cells 5-10/HPF Urine-Glucose Negative Negative Urine-Ketones Negative Negative Urine-Leukocytes Negative Negative Urine-Mucus 1+ Urine-Nitrite Negative Negative Urine-Other Urine Saved if Culture Needed (48hrs from time of collection) Urine-pH 6.5 5-8.5 Urine-Protein 1+ Negative Urine-RBC Negative Urine-Specific [place] 1.015 1.000-1.030 Urine-WBC Nothing Seen on Microscopic Urobilinogen 0.2 E.U./dL 0.2-1.0 [facility] - 05/24/18 05:45 Anion Gap 16 6-14 BUN 37 mg/dL 5-25 Calcium 9.0 mg/dL 8.3-10.4 Chloride 107 mmol/L 95-114 CO2 22 mEq/L 22-33 Creat 2.27 mg/dL 0.50-1.50 eGFR 29 mL/min/1.73m2 >59 Glucose 148 mg/dL 70-110 Osmo 300 280-295 Potassium 4.5 mmol/L 3.5-5.3 Sodium 140 mmol/L 134-148 [facility] - 05/25/18 06:30 Anion Gap 17 6-14 BUN 38 mg/dL 5-25 Calcium 8.8 mg/dL 8.3-10.4 Chloride 107 mmol/L 95-114 CO2 21 mEq/L 22-33 Creat 2.43 mg/dL 0.50-1.50 eGFR 26 mL/min/1.73m2 >59 Glucose 156 mg/dL 70-110 Osmo 300 280-295 Potassium 4.5 mmol/L 3.5-5.3 Sodium 140 mmol/L 134-148 Comprehensive Metabolic Panel - 05/26/18 06:30 Albumin 3.6 g/dL 3.6-5.1 ALP 70 U/L 35-130 ALT 7 U/L 6-45 Anion Gap 15 6-14 AST 10 U/L 2-40 BUN 45 mg/dL 5-25 Calcium 8.5 mg/dL 8.3-10.4 Chloride 109 mmol/L 95-114 CO2 21 mEq/L 22-33 Creat 2.90 mg/dL 0.50-1.50 eGFR 22 mL/min/1.73m2 >59 Globulin 2.5 g/dL 2.3-3.5 Glucose 162 mg/dL 70-110 Osmo 303 280-295 Potassium 4.7 mmol/L 3.5-5.3 Sodium 140 mmol/L 134-148 TBil 0.5 mg/dL 0.2-1.2 TP 6.1 g/dL 6.0-8.3 Urinalysis - 05/26/18 08:03 Icotest N/A Negative Urine Volume Urine Volume Insufficient (<10mL) May Affect Microscopic Exam Urine-Appearance Slightly Cloudy Clear Urine-Bacteria Trace Urine-Bilirubin Negative Negative Urine-Blood 3+ Negative Urine-Color Yellow Colorless-Lt. Yellow Urine-Epithelial Cells None Seen Urine-Glucose Negative Negative Urine-Ketones Negative Negative Urine-Leukocytes Negative Negative Urine-Nitrite Negative Negative Urine-pH 5.5 5-8.5 Urine-Protein 2+ Negative Urine-RBC 5-10/HPF Urine-Specific [place] 1.015 1.000-1.030 Urine-WBC Rare/HPF Urobilinogen 0.2 E.U./dL 0.2-1.0 HH - 05/26/18 08:10 Hct 26.4 % 42.0-52.0 Hgb 8.6 g/dL 14.0-17.0 XM (2) LRP - 05/26/18 14:15 CROSSMATCH COMPATIBLE X 2 Hct 26.9 % 42.0-52.0 Hgb 8.8 g/dL 14.0-17.0 TYPE/SCREEN - 05/26/18 13:30 ABO/RH A POSITIVE ANTIBODY SCREEN NEGATIVE TIBC - 05/27/18 06:30 Iron 51 ug/dL 70-200 Iron Saturation 35.48 % 15.00-55.00 TIBC 144 ug/dL 273-456 UIBC 115 ug/dL 200-370 Reticulocyte Count - 05/27/18 06:30 Reticulocyte Count 1.1 % 0.6-2.6 Haptoglobin - 05/27/18 06:30 HAPTOGLOBIN 217 MG/DL 34-200 Reticulocyte Count - 05/27/18 06:30 Reticulocyte Count 1.1 % 0.6-2.6 - 05/27/18 09:00 Hct 25.4 % 42.0-52.0 Hgb 8.2 g/dL 14.0-17.0 - 05/27/18 15:00 Hct 24.6 % 42.0-52.0 Hgb 8.0 g/dL 14.0-17.0 IFOBT Occult Blood - 05/27/18 15:45 IFOBT Occult Blood NEGATIVE Negative [facility] 05/27/18 18:57 Hct 24.5 % 42.0-52.0 Hgb 8.0 g/dL 14.0-17.0 Influenza virus A and B antigen detection - 07/27/18 10:20 FLU RESULT NEGATIVE FOR INFLUENZA A AND B ANTIGENS BY IA NRG Encounters ACCT No. Visit Date/Time Discharge Status Pt. 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,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, RENAL [id number] 10/06/2015 12:03:00 10/06/2015 14:29:00 DIS Emergency JULIENNE VASHTI ADAN [facility] ER LIGHTHEADED/DIZZY [id number] 05/22/2018 21:36:00 05/28/2018 11:52:00 DIS [id number] 04/18/2018 08:27:00 04/18/2018 23:59:00 DIS Outpatient Jennifer Sullivan [id number] 11/04/2017 11:51:00 11/04/2017 23:59:00 DIS Outpatient Laurie, Jennifer [id number] 11/01/2017 10:48:00 11/01/2017 23:59:00 DIS Outpatient Laurie, Jennifer [id number] 08/23/2017 14:00:00 08/23/2017 23:59:00 DIS Outpatient Sugey Rapp [id number] 05/30/2017 14:45:00 05/30/2017 23:59:00 DIS Outpatient Renny Bagley [id number] 02/27/2017 14:21:00 02/27/2017 23:59:00 DIS Outpatient Renny Bagley [id number] 11/26/2016 15:10:00 11/26/2016 23:59:00 DIS Outpatient Renny Bagley [id number] 09/07/2016 14:08:00 09/07/2016 23:59:00 DIS Outpatient Renny Bagley [id number] 05/22/2018 23:25:03 Document Registration [id number] 05/28/2018 07:18:00 Document Registration
--- NOTE | 2018-09-06 18:02 | ED Fall/Injury ---
General Chief Complaint: Trauma-Non Activation Stated Complaint: FALL Nursing Triage Note: ARRIVED VIA EMS FROM [facility]. STATES HE TRIPPED AND FELL AND DOES NOT WANT TO BE HERE. DENIES PAIN. EMS STATES HE WALKED TO THE COT FOR THEM. Source: patient, EMS, [facility] records Exam Limitations: no limitations History of Present Illness Date Seen by Provider: Sep 06, 2018 Time Seen by Provider: 17:11 Initial Comments This 68-year-old man presents to the emergency room via EMS from the [facility] where he had an unwitnessed fall. Patient does not recall the mechanism of his fall but says "I was probably horsing around". He denies loss of consciousness or head injury. care home staff requested he be evaluated because they thought there was shortening of his left leg. Patient states he does not want to be here and he is on injured. He denies any pain. EMS reports he was able to bear weight and walk to the cot. Allergies and Home Medications Allergies Coded Allergies: No Known Drug Allergies (Unverified , 10/06/15) Home Medications Amlodipine Besylate 5 Mg Tablet, 5 MG PO DAILY Prescribed by: ENRIQUE APPLE on 02/10/16939 Atorvastatin Calcium 20 Mg Tablet, 40 MG PO HS Prescribed by: ENRIQUE APPLE on 02/10/16939 Hydralazine HCl 25 Mg Tablet, 25 MG PO Q6H PRN for BLOOD PRESSURE Take 1 pill every 6 hours if systolic blood pressure is greater than 170 Prescribed by: ENRIQUE APPLE on 02/10/16 0942 Lisinopril 40 Mg Tablet, 40 MG PO DAILY Prescribed by: ENRIQUE APPLE on 02/10/16 09 Metformin HCl 750 Mg Tab.er.24h, 750 MG PO BID, (Reported) Metoprolol Tartrate 25 Mg Tablet, 25 MG PO BID Prescribed by: ENRIQUE APPLE on 02/10/16 09 Patient Home Medication List Home Medication List Reviewed: Yes Review of Systems Review of Systems Constitutional: no symptoms reported Eyes: No Symptoms Reported Ears, Nose, Mouth, Throat: no symptoms reported Respiratory: no symptoms reported Cardiovascular: no symptoms reported Gastrointestinal: no symptoms reported Genitourinary: no symptoms reported Musculoskeletal: see HPI Skin: no symptoms reported Psychiatric/Neurological: No Symptoms Reported Past Kxijvms-Cxvhyr-Jpmwxn Hx Past Med/Social Hx: Reviewed and Corrections made Patient Social History Alcohol Use: Denies Use Recreational Drug Use: No Smoking Status: Never a Smoker Recent Foreign Travel: No Contact w/Someone Who Travel: No Recent Infectious Disease Expo: No Past Medical History Surgeries: Yes (KIDNEY STONE) Respiratory: No Cardiac: Yes Hypertension Neurological: Yes ("MIGHT HAVE HAD A MINI STROKE AT ONE TIME"-SELF DIAGNOSIS) Genitourinary: Yes Prostate Problems, Kidney Stones Gastrointestinal: No Musculoskeletal: No Endocrine: Yes Diabetes, Non-Insulin dep Cancer: No Psychosocial: No Integumentary: No Blood Disorders: No Physical Exam Vital Signs Vital Signs - First Documented 09/06/18 17:10 Temp 98.0 Pulse 86 Resp 16 B/P (MAP) 134/77 (96) Pulse Ox 98 O2 Delivery Room Air Capillary Refill : Less Than 3 Seconds Height, Weight, BMI Height: 6'1.00" Weight: 165lbs. 14.4oz. 74.797512xr; 28.8 BMI Method:Estimated General Appearance: WD/WN, no apparent distress HEENT: PERRL/EOMI, normal ENT inspection, pharynx normal Neck: non-tender, normal inspection Cardiovascular: no edema, no murmur, irregularly irregular Respiratory: lungs clear, normal breath sounds, no respiratory distress, no accessory muscle use Gastrointestinal: normal bowel sounds, non tender, soft Extremities: non-tender, normal inspection, no pedal edema, other (no tenderness over the hips. 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 He does not want to be here. EMS noted that he had no pain for them and was able to bear weight without difficulty. Irregular rhythm was noted on auscultation of the heart. EKG was obtained and new onset atrial fibrillation was found. I recommended workup with labs, x-ray, and urinalysis to ensure patient had no injuries and no abnormalities contributing to new onset A. fib. Patient adamantly refused x-ray or blood draw. Since he had no complaints and his vital signs were stable, he was allowed to leave AGAINST MEDICAL ADVICE. Close follow-up with his primary care provider is advised. When I initially asked patient about atrial fibrillation he claimed he did not have it. However, when I discussed the findings of the EKG, he claimed he has had atrial fibrillation his "entire life". Without obtaining labs for further assessment and with history of fall, I do not feel comfortable providing this patient with anticoagulation. I will defer this decision to the primary care provider. Initial ECG Impression Date: Sep 06, 2018 Initial ECG Impression Time: 17:29 Initial ECG Rate: 91 Initial ECG Rhythm: A Fib/Flutter Initial ECG Impression: Atrial Fibrillation Comment Rate controlled atrial fibrillation with no ST elevation or depression. No axis deviation. Departure Impression Primary Impression: New onset atrial fibrillation Additional Impression: Fall on same level Qualified Codes: W18.30XA - Fall on same level, unspecified, initial encounter Disposition: 01 HOME, SELF-CARE Condition: Against Medical Advice Departure-Patient Inst. Decision time for Depature: 18:01 Referrals: RUBEN VALENCIA MD (PCP/Family) Primary Care Physician Add. Discharge Instructions: Follow-up with your primary care provider as soon as possible. Return to emergency room if you have any further problems or concerns. All discharge instructions reviewed with patient and/or family. Voiced understanding. Copy Copies To 1: FERA LOPEZ MD, JOSHUA T MD Sep 06, 2018 18:02
[2018-09-06 18:33] VITALS: BP 157/80
== END | disposition home or self-care (01) ==
LOC: EDUNIT# 17:10 → ER 17:11
DX: Z04.3 Encounter for examination and observation following other accident (principal); I48.91 Unspecified atrial fibrillation; I10 Essential (primary) hypertension; E11.9 Type 2 diabetes mellitus without complications; Z87.442 Personal history of urinary calculi; Z79.84 Long term (current) use of oral hypoglycemic drugs

== ENCOUNTER → 2018-12-27 | Outpatient (CLI) | payer MEDICARE, OTHER ==
[~2018-12-27] MED LIST changes: -AMLO5TAB7 PO; +AMLO5TAB9 PO
[2018-12-27 16:04] LABS: BILIRUBIN,URINE NEGATIVE (NEGATIVE); CLARITY,URINE CLEAR; COLOR,URINE YELLOW; GLUCOSE, URINE (UA) NEGATIVE (NEGATIVE); KETONES,URINE NEGATIVE (NEGATIVE); LEUKOCYTE ESTERASE ,URINE NEGATIVE (NEGATIVE); NITRITE,URINE NEGATIVE (NEGATIVE); PH,URINE 5 (5-9); PROTEIN,URINE 3+ (NEGATIVE); UROBILINOGEN,URINE NORMAL (NORMAL)
[2018-12-27 16:20] LABS: BACTERIA,URINE TRACE /HPF; SQUAMOUS EPITHELIAL CELL,UR 0-2 /HPF; WBC,URINE RARE /HPF
[2018-12-27 16:21] LABS: HYALINE CASTS, URINE 0-2 /LPF
== END ==
LOC: LABNPT 15:52
PROVIDERS: ATTEND Nurse Practitioner
DX: R41.82 Altered mental status, unspecified (principal)
CPT/HCPCS: 81000

== ENCOUNTER → 2019-04-17 | Outpatient (CLI) | payer MEDICARE, OTHER ==
[2019-04-17 19:47] LABS: BILIRUBIN,URINE NEGATIVE (NEGATIVE); CLARITY,URINE CLEAR; COLOR,URINE YELLOW; GLUCOSE, URINE (UA) NEGATIVE (NEGATIVE); KETONES,URINE NEGATIVE (NEGATIVE); LEUKOCYTE ESTERASE ,URINE NEGATIVE (NEGATIVE); NITRITE,URINE NEGATIVE (NEGATIVE); PH,URINE 5 (5-9); PROTEIN,URINE 2+ (NEGATIVE); UROBILINOGEN,URINE NORMAL (NORMAL)
[2019-04-17 19:57] LABS: BACTERIA,URINE NEGATIVE /HPF; SQUAMOUS EPITHELIAL CELL,UR 0-2 /HPF
== END ==
PROVIDERS: ATTEND Internal Medicine
DX: E11.22 Type 2 diabetes mellitus with diabetic chronic kidney disease (principal); I12.9 Hypertensive chronic kidney disease with stage 1 through stage 4 chronic kidney disease, or unspecified chronic kidney disease; D63.1 Anemia in chronic kidney disease; N18.3 Chronic kidney disease, stage 3 (moderate); F22 Delusional disorders; R41.0 Disorientation, unspecified; R45.1 Restlessness and agitation
CPT/HCPCS: 81000

== ENCOUNTER 2019-05-15 10:32 | Emergency (ER) | payer MEDICARE, OTHER ==
[~2019-05-15] VITALS: Ht 185.4 cm; Wt 99.8 kg
[2019-05-15 11:22] LABS: BASOPHILS % (AUTO) 0 % (0-10); EOSINOPHILS # (AUTO) 0.3 10^3/uL (0.0-0.3); EOSINOPHILS % (AUTO) 3 % (0-10); HEMATOCRIT 24 % (40-54); HEMOGLOBIN 8.1 G/DL (13.3-17.7); LYMPHOCYTES # (AUTO) 0.9 X 10^3 (1.0-4.0); LYMPHOCYTES % (AUTO) 12 % (12-44); MEAN CORPUSCULAR HEMOGLOBIN 29 PG (25-34); MEAN CORPUSCULAR HGB CONC 34 G/DL (32-36); MEAN CORPUSCULAR VOLUME 85 FL (80-99); MEAN PLATELET VOLUME 8.2 FL (7.4-10.4); MONOCYTES # (AUTO) 0.9 X 10^3 (0.0-1.0); MONOCYTES % (AUTO) 12 % (0-12); NEUTROPHILS # (AUTO) 5.9 X 10^3 (1.8-7.8); NEUTROPHILS % (AUTO) 73 % (42-75); PLATELET COUNT 262 10^3/uL (130-400); RED CELL DISTRIBUTION WIDTH 12.4 % (10.0-14.5); WHITE BLOOD COUNT 8.1 10^3/uL (4.3-11.0)
[2019-05-15 11:36] LABS: ALBUMIN 3.7 GM/DL (3.2-4.5); BILIRUBIN,TOTAL 0.4 MG/DL (0.1-1.0); CALCIUM 8.6 MG/DL (8.5-10.1); CREATININE SERUM 2.13 MG/DL (0.60-1.30); MAGNESIUM 2.1 MG/DL (1.6-2.4); POTASSIUM 4.6 MMOL/L (3.6-5.0)
--- NOTE | 2019-05-15 11:42 | ED General ---
General Chief Complaint: General Problems/Pain Stated Complaint: DELUSIONS;TROUBLE SEEING,PAIN Nursing Triage Note: Pt to Rm 7 via W/C from [facility]. Pt is nonverbal at this time and caregiver reports he is having trouble seeing. Caregiver is unaware how long this has been going on and states the pt is "refusing to talk". Nursing Sepsis Screen: No Definite Risk Source of Information: Patient Exam Limitations: No Limitations History of Present Illness Date Seen by Provider: May 15, 2019 Time Seen by Provider: 11:41 Initial Comments To ER with reports of trouble seeing for a few days. Doesn't want any workup for this, states "if I'm gonna , I'm gonna ". Timing/Duration: 1-2 Days Severity: Moderate Associated Systoms: Denies Symptoms Allergies and Home Medications Allergies Coded Allergies: No Known Drug Allergies (Unverified , 10/06/15) Home Medications Amlodipine Besylate 5 Mg Tablet, 5 MG PO DAILY Prescribed by: ENRIQUE APPLE on 02/10/16939 Atorvastatin Calcium 20 Mg Tablet, 40 MG PO HS Prescribed by: ENRIQUE APPLE on 02/10/16939 Hydralazine HCl 25 Mg Tablet, 25 MG PO Q6H PRN for BLOOD PRESSURE Take 1 pill every 6 hours if systolic blood pressure is greater than 170 Prescribed by: ENRIQUE APPLE on 02/10/16 09 Lisinopril 40 Mg Tablet, 40 MG PO DAILY Prescribed by: ENRIQUE APPLE on 02/10/16939 Metformin HCl 750 Mg Tab.er.24h, 750 MG PO BID, (Reported) Metoprolol Tartrate 25 Mg Tablet, 25 MG PO BID Prescribed by: ENRIQUE APPLE on 02/10/16939 Patient Home Medication List Home Medication List Reviewed: Yes Review of Systems Review of Systems Constitutional: see HPI EENTM: see HPI, blurred vision Respiratory: no symptoms reported Cardiovascular: no symptoms reported Genitourinary: no symptoms reported Musculoskeletal: no symptoms reported Skin: no symptoms reported Psychiatric/Neurological: No Symptoms Reported Past Kfqnicq-Dyfiyo-Tgrhys Hx Patient Social History Alcohol Use: Denies Use Recreational Drug Use: No Smoking Status: Never a Smoker 2nd Hand Smoke Exposure: No Recent Foreign Travel: No Contact w/Someone Who Travel: No Recent Infectious Disease Expo: No Recent Hopitalizations: No Physical Abuse: No Sexual Abuse: No Mistreated: No Fear: No Seasonal Allergies Seasonal Allergies: No Past Medical History Surgeries: Yes (KIDNEY STONE) Respiratory: No Cardiac: Yes Hypertension Neurological: Yes ("MIGHT HAVE HAD A MINI STROKE AT ONE TIME"-SELF DIAGNOSIS) Genitourinary: Yes Prostate Problems, Kidney Stones Gastrointestinal: No Musculoskeletal: No Endocrine: Yes Diabetes, Non-Insulin dep Cancer: No Psychosocial: No Integumentary: No Blood Disorders: No Physical Exam Vital Signs Vital Signs - First Documented 05/15/19 11:07 Temp 97.2 Pulse 78 Resp 16 B/P (MAP) 139/67 (91) Pulse Ox 96 O2 Delivery Room Air Capillary Refill : Less Than 3 Seconds Height, Weight, BMI Height: 6'1.00" Weight: 220lbs. 14.4oz. [id number]; 28.8 BMI Method:Stated General Appearance: No Apparent Distress, WD/WN, Chronically ill Eyes: Bilateral Eye Normal Inspection, Bilateral Eye PERRL HEENT: PERRL/EOMI, Normal ENT Inspection, Pharynx Normal Neck: Full Range of Motion, Normal Inspection Respiratory: Normal Breath Sounds, No Accessory Muscle Use, No Respiratory Distress Extremity: Normal Capillary Refill, Swelling (3+ pitting edema bilateral lower extremities) Neurologic/Psychiatric: Alert, No Motor/Sensory Deficits, Other (he is aware that he is in the emergency room,his name. Does not know the current year or his date of .) Skin: Normal Color, Warm/Dry, Other (fungating wound to the right sternoclavicular junction.) Progress/Results/Core Measures Suspected Sepsis Recent Fever Within 48 Hours: No Infection Criteria Present: None New/Unexplained Altered Menta: No Sepsis Screen: No Definite Risk SIRS Temperature:97.2 Pulse: 78 Respiratory Rate: 16 Laboratory Tests 05/15/19 11:10: White Blood Count 8.1 Blood Pressure 139 /67 Mean: 91 Laboratory Tests 05/15/19 11:10: Creatinine 2.13H, Platelet Count 262, Total Bilirubin 0.4 Results/Orders Lab Results Laboratory Tests Test 05/15/19 11:10 05/15/19 11:58 Range/Units White Blood Count 8.1 4.3-11.0 10^3/uL Red Blood Count 2.81 L 4.35-5.85 10^6/uL Hemoglobin 8.1 L 13.3-17.7 G/DL Hematocrit 24 L 40-54 % Mean Corpuscular Volume 85 80-99 FL Mean Corpuscular Hemoglobin 29 25-34 PG Mean Corpuscular Hemoglobin Concent 34 32-36 G/DL Red Cell Distribution Width 12.4 10.0-14.5 % Platelet Count 262 130-400 10^3/uL Mean Platelet Volume 8.2 7.4-10.4 FL Neutrophils (%) (Auto) 73 42-75 % Lymphocytes (%) (Auto) 12 12-44 % Monocytes (%) (Auto) 12 0-12 % Eosinophils (%) (Auto) 3 0-10 % Basophils (%) (Auto) 0 0-10 % Neutrophils # (Auto) 5.9 1.8-7.8 X 10^3 Lymphocytes # (Auto) 0.9 L 1.0-4.0 X 10^3 Monocytes # (Auto) 0.9 0.0-1.0 X 10^3 Eosinophils # (Auto) 0.3 0.0-0.3 10^3/uL Basophils # (Auto) 0.0 0.0-0.1 10^3/uL Erythrocyte Sedimentation Rate 45 H 0-30 MM/HR Sodium Level 128 L 135-145 MMOL/L Potassium Level 4.6 3.6-5.0 MMOL/L Chloride Level 99 98-107 MMOL/L Carbon Dioxide Level 22 21-32 MMOL/L Anion Gap 7 5-14 MMOL/L Blood Urea Nitrogen 34 H 7-18 MG/DL Creatinine 2.13 H 0.60-1.30 MG/DL Estimat Glomerular Filtration Rate 31 BUN/Creatinine Ratio 16 Glucose Level 130 H 70-105 MG/DL Calcium Level 8.6 8.5-10.1 MG/DL Corrected Calcium 8.8 8.5-10.1 MG/DL Magnesium Level 2.1 1.6-2.4 MG/DL Total Bilirubin 0.4 0.1-1.0 MG/DL Aspartate Amino Transf (AST/SGOT) 21 5-34 U/L Alanine Aminotransferase (ALT/SGPT) 26 0-55 U/L Alkaline Phosphatase 125 40-136 U/L Total Protein 7.0 6.4-8.2 GM/DL Albumin 3.7 3.2-4.5 GM/DL Thyroid Stimulating Hormone (TSH) 5.03 H 0.35-4.94 UIU/ML Free Thyroxine 1.07 0.70-1.48 NG/DL Urine Color YELLOW Urine Clarity CLEAR Urine pH 5 5-9 Urine Specific [place] 1.010 L 1.016-1.022 Urine Protein 2+ H NEGATIVE Urine Glucose (UA) NEGATIVE NEGATIVE Urine Ketones NEGATIVE NEGATIVE Urine Nitrite NEGATIVE NEGATIVE Urine Bilirubin NEGATIVE NEGATIVE Urine Urobilinogen NORMAL NORMAL MG/DL Urine Leukocyte Esterase NEGATIVE NEGATIVE Urine RBC (Auto) 2+ H NEGATIVE Urine RBC 0-2 /HPF Urine WBC NONE /HPF Urine Squamous Epithelial Cells NONE /HPF Urine Crystals NONE /LPF Urine Bacteria NEGATIVE /HPF Urine Casts NONE /LPF Urine Mucus NEGATIVE /LPF Urine Culture Indicated NO My Orders Orders - ASCENCION ALCOCER APRN Cbc With Automated Diff (05/15/19 11:17) Comprehensive Metabolic Panel (05/15/19 11:17) Ua Culture If Indicated (05/15/19 11:17) Chest 1 View, Ap/Pa Only (05/15/19 11:17) Ekg Tracing (05/15/19 11:17) Ed Iv/Invasive Line Start (05/15/19 11:17) Thyroid Stimulating Hormone (05/15/19 11:17) Magnesium (05/15/19 11:17) Erythrocyte Sedimentation Rate (05/15/19 11:17) Free T4 (Free Thyroxine) (05/15/19 12:07) Ns Iv 1000 Ml (Sodium Chloride 0.9%) (05/15/19 12:15) Vital Signs/I&O 05/15/19 11:07 Temp 97.2 Pulse 78 Resp 16 B/P (MAP) 139/67 (91) Pulse Ox 96 O2 Delivery Room Air Capillary Refill : Less Than 3 Seconds Blood Pressure Mean: 91 Departure Communication (Admissions) 1306-patient now reports that he has "only one eye". Not entirely sure what he means by this. Both eyes are normal in appearance, no conjunctival or scleral injection, PERRLA with each pupil at about 4 mm. Impression Primary Impression: Renal insufficiency Additional Impression: Hyponatremia Disposition: ER [facility] Condition: Stable Departure-Patient Inst. Decision time for Depature: 12:17 Referrals: NO,LOCAL PHYSICIAN (PCP/Family) Primary Care Physician Patient Instructions: Hyponatremia (DC) Add. Discharge Instructions: 1. Call Dr. Landeros today for an appointment to be seen on Saturday. Return to ER for any concerns. All discharge instructions reviewed with patient and/or family. Voiced understanding. ASCENCION ALCOCER APRN May 15, 2019 11:42
[2019-05-15 11:47] LABS: ERYTHROCYTE SEDIMENTATION RATE 45 MM/HR (0-30)
[2019-05-15 12:05] LABS: BILIRUBIN,URINE NEGATIVE (NEGATIVE); CLARITY,URINE CLEAR; COLOR,URINE YELLOW; GLUCOSE, URINE (UA) NEGATIVE (NEGATIVE); KETONES,URINE NEGATIVE (NEGATIVE); LEUKOCYTE ESTERASE ,URINE NEGATIVE (NEGATIVE); NITRITE,URINE NEGATIVE (NEGATIVE); PH,URINE 5 (5-9); PROTEIN,URINE 2+ (NEGATIVE); UROBILINOGEN,URINE NORMAL (NORMAL)
--- NOTE | 2019-05-15 12:10 | Diagnostic Imaging Report ---
INDICATION: Delusions and altered mental status. TIME OF EXAM: 11:49 a.m. COMPARISON: Correlation is made with prior study from 02/10/2016. FINDINGS: The heart size is normal. The pulmonary vascularity is unremarkable. The lungs are clear. No infiltrate, effusion or pneumothorax is detected. IMPRESSION: No acute cardiopulmonary process is detected. Dictated by: Dictated on workstation # [id number]
[2019-05-15 12:11] LABS: BACTERIA,URINE NEGATIVE /HPF; RBC,URINE 0-2 /HPF
[2019-05-15] MEDS ORDERED: NS IV 1000 ML 1,000 ML IV SCH (12:15)
[2019-05-15 13:23] VITALS: BP 150/73
== END 2019-05-15 13:15 ==
LOC: EDUNIT# 10:32 → ER 10:33
DX: N28.9 Disorder of kidney and ureter, unspecified (principal); E87.1 Hypo-osmolality and hyponatremia; I10 Essential (primary) hypertension; E11.9 Type 2 diabetes mellitus without complications; Z79.84 Long term (current) use of oral hypoglycemic drugs; Z86.73 Personal history of transient ischemic attack (TIA), and cerebral infarction without residual deficits
CPT/HCPCS: 36415; 71045; 80053; 81000; 83735; 84439; 84443; 85025; 85652; 93005; 96360

== ENCOUNTER → 2019-07-01 | Outpatient (CLI) | payer MEDICARE, OTHER | PROVIDERS: ATTEND Internal Medicine | DX: Z01.89 Encounter for other specified special examinations (principal) | CPT/HCPCS: 87328; 87329 ==